=== PATIENT | female | born 1935 | race Caucasian/White ===

== ENCOUNTER 2016-09-19 23:58 | Emergency (ER) | payer MEDICARE, OTHER ==
[2016-09-20 00:04] VITALS: BP 130/79
[2016-09-20] MEDS ORDERED: TETANUS/DIPHTHERIA/PERTUSSIS 0.5 ML SYRINGE IM ONE ×2 (00:07→00:08)
--- NOTE | 2016-09-20 00:09 | ED Physician Documentation ---
History of Present Illness - Stated complaint Stated Complaint: LT FINGER LACERATION - Chief complaint Chief Complaint: Laceration - History obtained from History obtained from: Patient, Family - History of Present Illness Timing: How many hours ago (4) Pain level max: 0 Pain level now: 0 Improved by: pressure Worsened by: movement - Additonal information Additional information: cut L index finger tip while cutting vegetables at home, continued to bleed tonight. 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 HEENT: Cataracts - Present Medications Home Medications: Ambulatory Orders Medication Instructions Recorded Confirmed Amlodipine/Atorvastatin 1 each PO DAILY 04/29/15 08/27/15 [Amlodipine-Atorvast 5-10 mg] Aspirin [Aspirin EC] 81 mg PO DAILY 04/29/15 08/27/15 Calcium Carbonate [Calcium] 600 mg PO DAILY 04/29/15 08/27/15 Garlic 1 each PO DAILY 04/29/15 08/27/15 Gluc Mcqueen/Chondro Mcqueen A/Vit C/Mn 1 each PO DAILY 04/29/15 08/27/15 [Glucosamine 1,500 Complex Cp] Latanoprost 0.005% Ophth Drops 1 drops OPTH QPM 04/29/15 08/27/15 [Xalatan Ophth Drops] Levothyroxine Sodium 100 mcg PO DAILY 04/29/15 08/27/15 Lisinopril 10 mg PO DAILY 04/29/15 08/27/15 [place]-3 Fatty Acids [Fish Oil] 900 mg PO DAILY 04/29/15 08/27/15 Omeprazole [PriLOSEC] 20 mg PO DAILY 04/29/15 08/27/15 Potassium Chloride [K-Dur] 20 meq PO ONCE 04/29/15 08/27/15 Simvastatin 10 mg PO DAILY 04/29/15 08/27/15 Timolol 0.25% Ophth Drops 1 drops EACHEYE DAILY 04/29/15 08/27/15 [Timoptic 0.25% Ophth Drops] Vit C/Ascorbate Ca/Ascorb Sod 500 mg PO BID 04/29/15 08/27/15 [Vitamin C 500 mg/15 ml Liquid] Citalopram Hydrobromide 20 mg PO DAILY 08/27/15 08/27/15 [Citalopram HBr] Vit B Cmplx 3/FA/Vit C/Biotin 1 tab PO DAILY 08/27/15 08/27/15 [Nephro-Aleida Rx Tablet] - Allergies Allergies/Adverse Reactions: Allergies Allergy/AdvReac Type Severity Reaction Status Date / Time No Known Drug Allergies Allergy Verified 06/11/15 06:50 - Living Situation Living Situation: reports: With family Living Arrangement: reports: At home - Social History Does the pt have substance abuse?: No - Family History Family history: reports: Non contributory - Immunizations Immunizations are current?: No Immunizations: TDAP >10years/unknown PD ED PE NORMAL - Vitals Vital signs reviewed: Yes - General General: Alert and oriented X 3, No acute distress - Derm Derm: Warm and dry - Extremities Extremities: Other (L index finger, tip., 0.5cm superficial. no bleeding.) - Neuro Neuro: Alert and oriented X 3 - Psych Psych: Normal mood, Normal affect Results - Vitals Vitals: Vital Signs - 24 hr 09/20/16 00:01 Temperature 36.5 C Heart Rate 74 Respiratory 18 Rate Blood Pressure 130/79 O2 Saturation 96 Oxygen O2 Source Room air PD MEDICAL DECISION MAKING - ED course Complexity details: considered differential, d/w patient, d/w family ED course: Patient is an 80-year-old female with a laceration to left index finger. Repair with Dermabond. No active bleeding. Warnings of infection and instructions on wound care given at bedside. Also counseled on how to minimize scarring. Tdap given Patient and family counseled regarding signs and symptoms for which I believe and urgent re-evaluation would be necessary. Patient with good understanding of and agreement to plan and is comfortable going home at this time This document was made in part using voice recognition software. While efforts are made to proofread this document, sound alike and grammatical errors may occur. Departure - Departure Disposition: 01 Home, Self Care Clinical Impression: Finger laceration Qualifiers: Encounter type: initial encounter Qualified Code(s): S61.219A - Laceration without foreign body of unspecified finger without damage to nail, initial encounter Condition: Good Instructions: ED Laceration Hand Follow-Up: Aristides Pittman MD [Primary Care Provider] - Within 1 week (for wound check ) Comments: Return if you worsen. Do not apply ointment to the glue as this may dissolve the glue. Discharge Date/Time: 09/20/16 00:18
== END 2016-09-20 00:18 | disposition home or self-care (01) ==
LOC: ED 23:58
DX: S61.211A Laceration without foreign body of left index finger without damage to nail, initial encounter (principal); W45.8XXA Other foreign body or object entering through skin, initial encounter; Y93.G3 Activity, cooking and baking; Y92.009 Unspecified place in unspecified non-institutional (private) residence as the place of occurrence of the external cause; I10 Essential (primary) hypertension; F03.90 Unspecified dementia, unspecified severity, without behavioral disturbance, psychotic disturbance, mood disturbance, and anxiety; Z79.82 Long term (current) use of aspirin
CPT/HCPCS: 12001; 90471; 99283

== ENCOUNTER 2016-11-04 15:17 | Emergency (ER) | payer MEDICARE, OTHER ==
[2016-11-04] MEDS ORDERED: BACITRACIN OINT TOP STA (15:58)
--- NOTE | 2016-11-04 17:08 | XRAY Preliminary Report ---
Exam: XR Ribs w/PA Chest RT IMPRESSION: No fractures identified. [facility] SITE ID: [id number]
--- NOTE | 2016-11-04 17:10 | XRAY Report ---
EXAM: RIGHT RIB RADIOGRAPHY EXAM DATE: 11/04/2016 04:41 PM. CLINICAL HISTORY: Fall 2 days ago with right lower chest wall pain. COMPARISON: 09/17/2008. TECHNIQUE: 1 view of the chest and 3 views of the ribs. FINDINGS: Bones: Normal. No fracture or bone lesion. Lungs: No focal opacities. No pneumothorax. No pleural effusions. Mediastinum: Heart and mediastinal contours are unremarkable. Other: None. IMPRESSION: No fractures identified. [facility] Referring Provider Line: [phone] SITE ID: [id number]
--- NOTE | 2016-11-04 17:11 | ED Physician Documentation ---
PD HPI Fall - Stated complaint Stated Complaint: GLF - Chief complaint Chief Complaint: General - History obtained from History obtained from: Patient, Family (spouse) - History of Present Illness Mechanism of injury: Tripped Fall distance: Standing position Where injury occurred: Home Timing - onset: Yesterday Injury(ies) location: Chest, Right Upper Extremity, Right Lower Extremity Associated symptoms: No: LOC, Neck pain, Weakness, Dyspnea, Nausea / vomiting Similar symptoms before: Has not had sx before - Additional information Additional information: The patient is an 81-year-old female who fell yesterday when she stumbled, falling onto concrete, impacting her right elbow and right hip/buttock. She denies hitting her head or losing consciousness. She has been ambulatory since the incident occurred. Her last tetanus booster was 10 years ago. She is status post bilateral total hip replacements. Review of Systems Constitutional: denies: Fever Ears: denies: Tinnitus/ringing Nose: denies: Congestion Cardiac: reports: Chest pain / pressure (Right lower chest wall.) Respiratory: denies: Dyspnea, Cough GI: denies: Abdominal Pain, Nausea, Vomiting : denies: Dysuria Skin: reports: Laceration (s) (Skin tear at the right elbow.) Musculoskeletal: reports: Extremity pain (right posterior sacral/buttock region) . 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 HEENT: Cataracts - Present Medications Home Medications: Ambulatory Orders Medication Instructions Recorded Confirmed Amlodipine/Atorvastatin 1 each PO DAILY 04/29/15 11/04/16 [Amlodipine-Atorvast 5-10 mg] Aspirin [Aspirin EC] 325 mg PO DAILY 04/29/15 11/04/16 Calcium Carbonate [Calcium] 600 mg PO DAILY 04/29/15 11/04/16 Garlic 1 each PO DAILY 04/29/15 11/04/16 Gluc Mcqueen/Chondro Mcqueen A/Vit C/Mn 1 each PO DAILY 04/29/15 11/04/16 [Glucosamine 1,500 Complex Cp] Latanoprost 0.005% Ophth Drops 1 drops OPTH QPM 04/29/15 11/04/16 [Xalatan Ophth Drops] Levothyroxine Sodium 100 mcg PO DAILY 04/29/15 11/04/16 Lisinopril 10 mg PO DAILY 04/29/15 11/04/16 [place]-3 Fatty Acids [Fish Oil] 900 mg PO DAILY 04/29/15 11/04/16 Omeprazole [PriLOSEC] 20 mg PO DAILY 04/29/15 11/04/16 Potassium Chloride [K-Dur] 20 meq PO ONCE 04/29/15 11/04/16 Simvastatin 10 mg PO DAILY 04/29/15 11/04/16 Timolol 0.25% Ophth Drops 1 drops EACHEYE DAILY 04/29/15 11/04/16 [Timoptic 0.25% Ophth Drops] Vit C/Ascorbate Ca/Ascorb Sod 500 mg PO BID 04/29/15 11/04/16 [Vitamin C 500 mg/15 ml Liquid] Citalopram Hydrobromide 20 mg PO DAILY 08/27/15 11/04/16 [Citalopram HBr] Vit B Cmplx 3/FA/Vit C/Biotin 1 tab PO DAILY 08/27/15 11/04/16 [Nephro-Aleida Rx Tablet] HYDROcod/ACETAM 5/325 [Vicodin 1 - 2 ea PO Q6H PRN #15 tablet 11/04/16 5/325] - Allergies Allergies/Adverse Reactions: Allergies Allergy/AdvReac Type Severity Reaction Status Date / Time No Known Drug Allergies Allergy Verified 06/11/15 06:50 - Social History Does the pt smoke?: No Smoking Status: Never smoker Does the pt have substance abuse?: No - Immunizations Immunizations are current?: No Immunizations: TDAP >10years/unknown PD ED PE NORMAL - Vitals Vital signs reviewed: Yes (normal) - General General: Alert and oriented X 3, Well developed/nourished - HEENT HEENT: Atraumatic - Neck Neck: No bony TTP, Other (Full range of motion without tenderness.) - Cardiac Cardiac: RRR - Respiratory Respiratory: No respiratory distress, Clear bilaterally, Other (There is tenderness to palpation over the right lower chest wall in the anterior axillary line. There is no bony step-off palpated, and no ecchymosis or abrasion.) - Abdomen Abdomen: Soft, Non tender - Back Back: No spinal TTP - Derm Derm: No rash - Extremities Extremities: No edema, No calf tenderness / cord, Other (There is a superficial skin tear over the lateral aspect of the right proximal forearm at the elbow. She has full range of motion of the elbow, including supination and pronation of the forearm. There is mild tenderness to palpation over the right buttock in the superior iliac region. There is no ecchymosis. There is no tenderness to palpation over the hip, including no discomfort with internal or external rotation.) - Neuro Neuro: Alert and oriented X 3, No motor deficit, No sensory deficit Results - Vitals Vitals: Vital Signs - 24 hr 11/04/16 11/04/16 15:22 17:38 Temperature 35.9 C L Heart Rate 67 66 Respiratory 16 16 Rate Blood Pressure 132/72 H 152/81 H O2 Saturation 98 99 Oxygen O2 Source Room air - Rads (name of study) Right ribs with PA chest Radiology: Prelim report reviewed, EMP read contemporaneously, See rad report ( No rib fractures identified.) PD MEDICAL DECISION MAKING - ED course Complexity details: reviewed results, re-evaluated patient, considered differential, d/w patient, d/w family ED course: The patient's presentation is significant for contusions caused by falling. Contusions included to the right chest wall, the right buttock, the right elbow , with associated skin tear. X-ray of the right ribs with PA chest reveals no evidence of rib fracture or pneumothorax. Treatment in the emergency department included cleaning of the skin tear, repair with Steri-Strips and application of wound dressing. I discussed with her and her the expected course of healing, symptomatic treatment and outpatient follow-up, as well as potentially worrisome signs or symptoms that should prompt reevaluation in the emergency department. Departure - Departure Disposition: 01 Home, Self Care Clinical Impression: Fall Qualifiers: Encounter type: initial encounter Qualified Code(s): W19.XXXA - Unspecified fall, initial encounter Chest wall contusion Qualifiers: Encounter type: initial encounter Laterality: right Qualified Code(s): S20.211A - Contusion of right front wall of thorax, initial encounter Skin tear of elbow without complication Qualifiers: Encounter type: initial encounter Laterality: right Qualified Code(s): S51.011A - Laceration without foreign body of right elbow, initial encounter Contusion of hip, right Qualifiers: Encounter type: initial encounter Qualified Code(s): S70.01XA - Contusion of right hip, initial encounter Condition: Stable Instructions: ED Contusion Chest Wall, ED Avulsion Dermal Follow-Up: Antonina Odell PA-C [Provider Admit Priv/Credential] - Prescriptions: HYDROcod/ACETAM 5/325 [Vicodin 5/325] 1 - 2 ea PO Q6H PRN #15 tablet PRN Reason: Pain Comments: Apply icepack to the sore areas intermittently for the next 3 days. You can use ibuprofen, up to 600 mg 3 times daily if needed for discomfort. You can also use Vicodin as prescribed if needed for pain. Let pain be your guide to activity level. Follow up with your primary physician within 2 weeks. Call to schedule an appointment. Return to the emergency department if you develop increasing difficulty breathing, or otherwise worsening symptoms. Discharge Date/Time: 11/04/16 17:38
[2016-11-04 17:38] VITALS: BP 152/81
== END 2016-11-04 17:38 | disposition home or self-care (01) ==
LOC: ED 15:17
DX: S20.211A Contusion of right front wall of thorax, initial encounter (principal); S51.001A Unspecified open wound of right elbow, initial encounter; S70.01XA Contusion of right hip, initial encounter; W01.0XXA Fall on same level from slipping, tripping and stumbling without subsequent striking against object, initial encounter; Y92.008 Other place in unspecified non-institutional (private) residence as the place of occurrence of the external cause; I10 Essential (primary) hypertension; F03.90 Unspecified dementia, unspecified severity, without behavioral disturbance, psychotic disturbance, mood disturbance, and anxiety; Z96.649 Presence of unspecified artificial hip joint; Z79.82 Long term (current) use of aspirin
CPT/HCPCS: 99283

== ENCOUNTER 2016-12-08 11:07 | Outpatient (CLI) | payer MEDICARE, OTHER ==
[2016-12-08 18:59] LABS: BASOPHILS # (AUTO) 0.1 10^3/uL (0.0-0.1); EOSINOPHILS # (AUTO) 0.4 10^3/uL (0.0-0.7); EOSINOPHILS % (AUTO) 6.6 %; HCT - HEMATOCRIT 39.6 % (37.0-47.0); HGB - HEMOGLOBIN 12.9 g/dL (12.0-16.0); LYMPHOCYTES # (AUTO) 1.4 10^3/uL (1.5-3.5); LYMPHOCYTES % (AUTO) 23.8 %; MEAN CORPUSCULAR HEMOGLOBIN 31.6 pg (27.0-31.0); MEAN CORPUSCULAR HGB CONC 32.7 g/dL (32.0-36.0); MEAN CORPUSCULAR VOLUME 96.8 fL (81.0-99.0); MONOCYTES # (AUTO) 0.6 10^3/uL (0.0-1.0); MONOCYTES % (AUTO) 9.3 %; NEUTROPHILS # (AUTO) 3.6 10^3/uL (1.5-6.6); NEUTROPHILS % (AUTO) 59.3 %; NUCLEATED RED BLOOD CELLS AUTO 0.1 /100WBC; RED BLOOD COUNT 4.09 10^6/uL (4.20-5.40); RED CELL DISTRIBUTION WIDTH 13.5 % (12.0-15.0)
[2016-12-08 19:25] LABS: ALBUMIN/GLOBULIN RATIO 1.3 (1.0-2.2); BILIRUBIN,TOTAL 0.7 mg/dL (0.2-1.0); BUN - BLOOD UREA NITROGEN 21 mg/dL (6-20); CALCIUM 9.5 mg/dL (8.5-10.3); CARBON DIOXIDE - CO2 25 mmol/L (21-32); CHLORIDE 103 mmol/L (101-111); CHOL/HDL RATIO 2.8 (<4.4); CHOLESTEROL 195 mg/dL; CREATININE 0.7 mg/dL (0.4-1.0); GFR - MDRD 80 (>89); GLUCOSE 77 mg/dL (70-100); HDL CHOLESTEROL 70 mg/dL; LDL/HDL RATIO 1.3 (<4.4); POTASSIUM 4.4 mmol/L (3.5-5.0); SODIUM 136 mmol/L (135-145); TOTAL PROTEIN 7.2 g/dL (6.7-8.2); TRIGLYCERIDES 176 mg/dL; VLDL CHOLESTEROL 35 mg/dL
== END 2016-12-08 11:08 | disposition home or self-care (01) ==
LOC: LAB.WCP 11:07
PROVIDERS: ATTEND Family Medicine
DX: I10 Essential (primary) hypertension (principal); E78.5 Hyperlipidemia, unspecified; E03.9 Hypothyroidism, unspecified
CPT/HCPCS: 36415; 80053; 80061; 84443; 85025

== ENCOUNTER 2017-01-18 14:10 | Outpatient (CLI) | payer MEDICARE, OTHER | END 2017-01-18 14:11 | disposition home or self-care (01) | LOC: SC 14:10 | PROVIDERS: ATTEND Specialist | DX: G47.30 Sleep apnea, unspecified (principal); R53.83 Other fatigue; R06.83 Snoring; G47.00 Insomnia, unspecified; R61 Generalized hyperhidrosis | CPT/HCPCS: 99205; G0463; 99212 ==

== ENCOUNTER 2017-06-03 15:11 | Emergency (ER) | payer MEDICARE, OTHER ==
[2017-06-03] MEDS ORDERED: ACETAMINOPHEN 325 MG TABLET PO STA (17:00)
--- NOTE | 2017-06-03 17:04 | ED Physician Documentation ---
History of Present Illness - Stated complaint Stated Complaint: WEAKNESS - Chief complaint Chief Complaint: General - History obtained from History obtained from: Patient, Family () - History of Present Illness Timing: Other (She has had mild bitemporal throbbing for the last 3 weeks which is worse today not associated with visual changes or photophobia. She has never had this before and does not really have any headaches in the past. Today it is associated with abdominal discomfort but no nausea or significant pain. Her bowel movements have been normal. No fevers or chills.) Review of Systems Ten Systems: 10 systems reviewed and negative Constitutional: reports: Fatigue. 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 HEENT: Cataracts - Present Medications Home Medications: Ambulatory Orders Medication Instructions Recorded Confirmed Amlodipine/Atorvastatin 1 each PO DAILY 04/29/15 11/04/16 [Amlodipine-Atorvast 5-10 mg] Aspirin [Aspirin EC] 325 mg PO DAILY 04/29/15 11/04/16 Calcium Carbonate [Calcium] 600 mg PO DAILY 04/29/15 11/04/16 Garlic 1 each PO DAILY 04/29/15 11/04/16 Gluc Mcqueen/Chondro Mcqueen A/Vit C/Mn 1 each PO DAILY 04/29/15 11/04/16 [Glucosamine 1,500 Complex Cp] Latanoprost 0.005% Ophth Drops 1 drops OPTH QPM 04/29/15 11/04/16 [Xalatan Ophth Drops] Levothyroxine Sodium 100 mcg PO DAILY 04/29/15 11/04/16 Lisinopril 10 mg PO DAILY 04/29/15 11/04/16 [place]-3 Fatty Acids [Fish Oil] 900 mg PO DAILY 04/29/15 11/04/16 Omeprazole [PriLOSEC] 20 mg PO DAILY 04/29/15 11/04/16 Potassium Chloride [K-Dur] 20 meq PO ONCE 04/29/15 11/04/16 Simvastatin 10 mg PO DAILY 04/29/15 11/04/16 Timolol 0.25% Ophth Drops 1 drops EACHEYE DAILY 04/29/15 11/04/16 [Timoptic 0.25% Ophth Drops] Vit C/Ascorbate Ca/Ascorb Sod 500 mg PO BID 04/29/15 11/04/16 [Vitamin C 500 mg/15 ml Liquid] Citalopram Hydrobromide 20 mg PO DAILY 08/27/15 11/04/16 [Citalopram HBr] Vit B Comp No.3/Folic/C/Biotin 1 tab PO DAILY 08/27/15 11/04/16 [Nephro-Aleida Rx Tablet] Amox/Clav 875/125 [Augmentin] 1 each PO Q12H #20 tablet 06/03/17 - Allergies Allergies/Adverse Reactions: Allergies Allergy/AdvReac Type Severity Reaction Status Date / Time No Known Drug Allergies Allergy Verified 06/11/15 06:50 - Social History Does the pt smoke?: No Smoking Status: Never smoker Does the pt have substance abuse?: No - Immunizations Immunizations are current?: No Immunizations: TDAP >10years/unknown PD ED PE NORMAL - Vitals Vital signs reviewed: Yes - General General: Alert and oriented X 3, No acute distress - HEENT HEENT: PERRL, EOMI, Other (Nontender temples) - Neck Neck: Supple, no meningeal sign, No bony TTP - Cardiac Cardiac: RRR, Other (2/6 MARIANGEL LLSB) - Respiratory Respiratory: No respiratory distress, Clear bilaterally - Abdomen Abdomen: Soft, Non tender, Other (hyperactive bowel tones) - Back Back: No CVA TTP, No spinal TTP - Derm Derm: Normal color, Warm and dry - Extremities Extremities: No edema, No calf tenderness / cord - Neuro Neuro: Alert and oriented X 3, Normal speech Results - Vitals Vitals: Vital Signs - 24 hr 06/03/17 06/03/17 15:24 19:19 Temperature 36.5 C Heart Rate 64 67 Respiratory 15 17 Rate Blood Pressure 133/69 H 164/80 H O2 Saturation 99 99 Oxygen O2 Source Room air - Labs Labs: Laboratory Tests 06/03/17 06/03/17 06/03/17 17:30 17:30 17:30 WBC 6.9 RBC 4.19 L Hgb 13.2 Hct 38.6 MCV 92.2 MCH 31.4 H MCHC 34.1 RDW 13.3 Plt Count 338 MPV 7.5 L Neut # 4.8 Lymph # 1.2 L Cedar # 0.6 Eos # 0.2 Baso # 0.1 Absolute Nucleated RBC 0.00 Nucleated RBC % 0.0 ESR 16 Sodium 136 Potassium 4.1 Chloride 99 L Carbon Dioxide 24 Anion Gap 13.0 BUN 17 Creatinine 0.8 Estimated GFR (MDRD) 69 L Glucose 81 Calcium 9.4 Total Bilirubin 0.5 AST 20 ALT 13 Alkaline Phosphatase 79 C-Reactive Protein 2.6 H Total Protein 7.1 Albumin 4.1 Globulin 3.0 Albumin/Globulin Ratio 1.4 Lipase 27 - Rads (name of study) CT Head Radiology: EMP read contemporaneously (Maxilar sinusitis) CT A?P Radiology: EMP read contemporaneously (neg) PD MEDICAL DECISION MAKING - ED course ED course: 81-year-old woman presents with vague complaints including headache and abdominal uneasiness without overt pain. She has a benign examination. Temporal arteritis was considered but sed rate negative. She does have evidence of sinusitis. The remainder of her workup was negative. Departure - Departure Disposition: 01 Home, Self Care Clinical Impression: Abdominal discomfort Sinusitis Qualifiers: Sinusitis location: maxillary Chronicity: acute Recurrence: non-recurrent Qualified Code(s): J01.00 - Acute maxillary sinusitis, unspecified Condition: Good Record reviewed to determine appropriate education?: Yes Instructions: ED Sinusitis Abx Tx Prescriptions: Amox/Clav 875/125 [Augmentin] 1 each PO Q12H #20 tablet Comments: Call your doctor to arrange a follow-up appointment, make the next available appointment. In the interim, return anytime if worse or if new symptoms develop. Your blood pressure was elevated today on check into the emergency department. This does not mean that you have hypertension, it is a common phenomenon to come to the emergency department and have elevated blood pressure. I recommend that you see your primary care physician within the week to have it rechecked when you are feeling better.
[2017-06-03 17:47] LABS: BASOPHILS # (AUTO) 0.1 10^3/uL (0.0-0.1); BASOPHILS % (AUTO) 1.2 %; EOSINOPHILS # (AUTO) 0.2 10^3/uL (0.0-0.7); EOSINOPHILS % (AUTO) 3.4 %; HGB - HEMOGLOBIN 13.2 g/dL (12.0-16.0); LYMPHOCYTES # (AUTO) 1.2 10^3/uL (1.5-3.5); LYMPHOCYTES % (AUTO) 16.7 %; MEAN CORPUSCULAR HEMOGLOBIN 31.4 pg (27.0-31.0); MEAN CORPUSCULAR HGB CONC 34.1 g/dL (32.0-36.0); MEAN CORPUSCULAR VOLUME 92.2 fL (81.0-99.0); MEAN PLATELET VOLUME 7.5 fL (7.9-10.8); MONOCYTES # (AUTO) 0.6 10^3/uL (0.0-1.0); MONOCYTES % (AUTO) 8.9 %; NEUTROPHILS # (AUTO) 4.8 10^3/uL (1.5-6.6); NEUTROPHILS % (AUTO) 69.8 %; PLT - PLATELET COUNT 338 10^3/uL (130-450); RED BLOOD COUNT 4.19 10^6/uL (4.20-5.40); RED CELL DISTRIBUTION WIDTH 13.3 % (12.0-15.0); WHITE BLOOD COUNT 6.9 x10^3/uL (4.8-10.8)
[2017-06-03 18:02] LABS: ALBUMIN 4.1 g/dL (3.2-5.5); ALBUMIN/GLOBULIN RATIO 1.4 (1.0-2.2); BILIRUBIN,TOTAL 0.5 mg/dL (0.2-1.0); CALCIUM 9.4 mg/dL (8.5-10.3); CREATININE 0.8 mg/dL (0.4-1.0); CRP - C-REACTIVE PROTEIN 2.6 mg/dL (0-1.0); TOTAL PROTEIN 7.1 g/dL (6.7-8.2)
[2017-06-03] MEDS ORDERED: IOPAMIDOL-300 100 ML VIAL ONE (18:36)
[2017-06-03] MEDS ORDERED: IOPAMIDOL-300 100 ML VIAL IVP ONE (18:58)
[2017-06-03 19:20] VITALS: BP 164/80
--- NOTE | 2017-06-03 19:29 | CT Preliminary Report ---
Exam: CT HEAD W/O IMPRESSION: 1. No acute intracranial abnormality nor bleed. 2. Moderate to marked left maxillary sinusitis. [facility] SITE ID: [id number]
--- NOTE | 2017-06-03 19:38 | CT Preliminary Report ---
Exam: CT ABDOMEN/PELVIS W/ IMPRESSION: 1. Normal appendix. 2. Study is unremarkable. No radiographic explanation for this lady's presenting symptoms [facility] SITE ID: [id number]
--- NOTE | 2017-06-03 19:38 | CT Report ---
EXAM: CT HEAD EXAM DATE: 06/03/2017 06:57 PM. CLINICAL HISTORY: Headache. COMPARISON: 12/04/2012.. TECHNIQUE: Multiaxial CT images were obtained from the foramen magnum to the vertex. Reformats: Coron al. IV contrast: None. In accordance with CT protocol optimization, one or more of the following dose reduction techniques w ere utilized for this exam: automated exposure control, adjustment of mA and/or KV based on patient s ize, or use of iterative reconstructive technique. FINDINGS: Parenchyma: No intraparenchymal hemorrhage. No evidence of mass, midline shift, or CT findings of acu te infarction. Garcia-white differentiation is distinct. Diffuse chronic microangiopathic white matter changes are evident. Extraaxial Spaces: Normal for age. No subdural or epidural collections identified. Ventricles: The ventricles and cortical sulci are enlarged, consistent with age-related tissue loss. Sinuses and orbits: New moderate to marked mucosal thickening left maxillary sinus. Minimal mucosal t hickening floor of right maxillary sinus. The rest of the paranasal sinuses, middle ears, and mastoid air cells are clear. Bones: No evidence of fracture or calvarial defect. Other: None. IMPRESSION: 1. No acute intracranial abnormality nor bleed. 2. Moderate to marked left maxillary sinusitis. [facility] Referring Provider Line: [phone] SITE ID: [id number]
[2017-06-03] MEDS ORDERED: AMOX/CLAV 875 MG/125 MG TABLET PO STA (19:49)
--- NOTE | 2017-06-03 20:07 | CT Report ---
EXAM: CT ABDOMEN AND PELVIS EXAM DATE: 06/03/2017 06:59 PM. CLINICAL HISTORY: Diffuse abdominal pain for one day. COMPARISONS: 06/23/2012. TECHNIQUE: Routine helical CT imaging was performed through the abdomen and pelvis. IV contrast: Isov ue 300 100 mL. Enteric contrast: No. Reconstructions: Coronal and sagittal. In accordance with CT protocol optimization, one or more of the following dose reduction techniques w ere utilized for this exam: automated exposure control, adjustment of mA and/or KV based on patient s ize, or use of iterative reconstructive technique. FINDINGS: Lung Bases: Unremarkable. Liver: Multiple 3 cm and smaller hepatic cysts. Gallbladder/Bile Ducts: Unremarkable. Spleen: Normal. Pancreas: New mild uniform pancreatic duct dilatation, 4 mm, unremarkable for age. No peripancreatic edema. Adrenal Glands: Normal. Kidneys: Normal. No masses or hydronephrosis. Peritoneal Cavity/Bowel: Normal. No free fluid, free air or adenopathy. No masses or acute inflammato ry process. The appendix is well visualized and normal. Pelvic Organs: Remote hysterectomy. Artifacts off the bilateral total hip replacements obscure the in ferior third of the pelvis. Pelvis is otherwise unremarkable. Vasculature: No aneurysms or other significant abnormality. Bones: Interval bilateral total hip replacement. Postoperative changes lower lumbar spine. Marked deg enerative changes throughout the scoliotic spine. Other: None. IMPRESSION: 1. Normal appendix. 2. Study is unremarkable. No radiographic explanation for this lady's presenting symptoms. [facility] Referring Provider Line: [phone] SITE ID: [id number]
== END 2017-06-03 20:00 | disposition home or self-care (01) ==
LOC: ED 15:11
DX: R10.9 Unspecified abdominal pain (principal); J01.00 Acute maxillary sinusitis, unspecified; I10 Essential (primary) hypertension; Z96.649 Presence of unspecified artificial hip joint
CPT/HCPCS: 36415; 70450; 74177; 80053; 83690; 85025; 85651; 86140; 99283; 99284; A9270; Q9967

== ENCOUNTER 2017-06-17 12:52 | Outpatient (CLI) | payer MEDICARE, OTHER | END 2017-06-17 12:53 | disposition home or self-care (01) | LOC: DI 12:52 | PROVIDERS: ATTEND Family Medicine | DX: R01.1 Cardiac murmur, unspecified (principal); I51.7 Cardiomegaly | CPT/HCPCS: 93306 ==

== ENCOUNTER 2017-07-07 15:25 | Outpatient (CLI) | payer MEDICARE, OTHER | END 2017-07-07 15:26 | LOC: LAB.R 15:25 | PROVIDERS: ATTEND Family Medicine | DX: N39.0 Urinary tract infection, site not specified (principal) | CPT/HCPCS: 87077; 87086 ==

== ENCOUNTER 2017-10-14 17:46 | Emergency (ER) | payer MEDICARE, OTHER ==
--- NOTE | 2017-10-14 17:58 | ED Physician Documentation ---
PD HPI CHEST PAIN - Stated complaint Stated Complaint: IRREG HEARTBEAT - History obtained from History obtained from: Patient, Family - History of Present Illness Timing - onset: Today (Today she has been having more palpitations than normal, she always has palpitations to some extent. Today it is more common than normal. She feels like she is skipping a beat every 5-10 beats or so. It is not a painful phenomenon and there is no shortness of breath or pedal edema with it.) Review of Systems Constitutional: denies: Fever, Chills Cardiac: reports: Palpitations. 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 HEENT: Cataracts - Present Medications Home Medications: Ambulatory Orders Medication Instructions Recorded Confirmed Amlodipine/Atorvastatin 1 each PO DAILY 04/29/15 11/04/16 [Amlodipine-Atorvast 5-10 mg] Aspirin [Aspirin EC] 325 mg PO DAILY 04/29/15 11/04/16 Calcium Carbonate [Calcium] 600 mg PO DAILY 04/29/15 11/04/16 Garlic 1 each PO DAILY 04/29/15 11/04/16 Latanoprost 0.005% Ophth Drops 1 drops OPTH QPM 04/29/15 11/04/16 [Xalatan Ophth Drops] Levothyroxine Sodium 100 mcg PO DAILY 04/29/15 11/04/16 Lisinopril 10 mg PO DAILY 04/29/15 11/04/16 [place]-3 Fatty Acids [Fish Oil] 900 mg PO DAILY 04/29/15 11/04/16 Omeprazole [PriLOSEC] 20 mg PO DAILY 04/29/15 11/04/16 Potassium Chloride [K-Dur] 20 meq PO ONCE 04/29/15 11/04/16 Simvastatin 10 mg PO DAILY 04/29/15 11/04/16 Timolol 0.25% Ophth Drops 1 drops EACHEYE DAILY 04/29/15 11/04/16 [Timoptic 0.25% Ophth Drops] Vit C/Ascorbate Ca/Ascorb Sod 500 mg PO BID 04/29/15 11/04/16 [Vitamin C 500 mg/15 ml Liquid] Citalopram Hydrobromide 20 mg PO DAILY 08/27/15 11/04/16 [Citalopram HBr] Zolpidem [Ambien] 1 tab PO DAILY 10/14/17 10/14/17 - Allergies Allergies/Adverse Reactions: Allergies Allergy/AdvReac Type Severity Reaction Status Date / Time No Known Drug Allergies Allergy Verified 10/14/17 17:59 - Social History Does the pt smoke?: No Smoking Status: Never smoker Does the pt have substance abuse?: No - Immunizations Immunizations are current?: No Immunizations: TDAP >10years/unknown PD ED PE NORMAL - Vitals Vital signs reviewed: Yes - General General: Alert and oriented X 3, No acute distress - HEENT HEENT: PERRL, EOMI - Neck Neck: Supple, no meningeal sign, No bony TTP - Cardiac Cardiac: RRR (With occasional extrasystoles and 2 out of 6 decrescendo systolic murmur) - Respiratory Respiratory: No respiratory distress, Clear bilaterally - Extremities Extremities: No edema, No calf tenderness / cord - Neuro Neuro: Alert and oriented X 3, Normal speech - Psych Psych: Normal mood, Normal affect Results - Vitals Vitals: Vital Signs - 24 hr 10/14/17 17:55 Temperature 36.5 C Heart Rate 64 Respiratory 16 Rate Blood Pressure 136/74 H O2 Saturation 100 Oxygen O2 Source Room air - EKG (time done) 1754 Rate: Rate (enter#) (60) Rhythm: NSR [place]: LAD Intervals: Normal ME QRS: Normal Ischemia: Q waves (Anterior septal) Compare to prior EKG: Old EKG unavailable Computer interpretation: Agree with computer - Labs Labs: Laboratory Tests 10/14/17 10/14/17 10/14/17 18:04 18:04 18:04 WBC 5.6 RBC 4.19 L Hgb 13.3 Hct 39.9 MCV 95.2 MCH 31.7 H MCHC 33.3 RDW 13.2 Plt Count 346 MPV 6.9 L Neut # (Auto) 3.6 Lymph # (Auto) 1.2 L [place] # (Auto) 0.6 Eos # (Auto) 0.2 Baso # (Auto) 0.1 Absolute Nucleated RBC 0.00 Nucleated RBC % 0.0 Sodium 135 Potassium 4.3 Chloride 103 Carbon Dioxide 25 Anion Gap 7.0 BUN 20 Creatinine 0.9 Estimated GFR (MDRD) 60 L Glucose 88 Calcium 9.5 Magnesium 2.0 Total Bilirubin 0.7 AST 20 ALT 14 Alkaline Phosphatase 65 Troponin I < 0.04 Total Protein 7.2 Albumin 4.1 Globulin 3.1 Albumin/Globulin Ratio 1.3 Lipase 38 PD MEDICAL DECISION MAKING - ED course ED course: On the gambling monitor she is having about 3 PACs per minute which correlates temporally with her symptoms. - Sepsis Event Vital Signs: Vital Signs - 24 hr 10/14/17 17:55 Temperature 36.5 C Heart Rate 64 Respiratory 16 Rate Blood Pressure 136/74 H O2 Saturation 100 Oxygen O2 Source Room air Departure - Departure Disposition: 01 Home, Self Care Clinical Impression: PAC (premature atrial contraction), Palpitation Hypertension Qualifiers: Hypertension type: essential hypertension Qualified Code(s): I10 - Essential ( primary) hypertension Condition: Good Record reviewed to determine appropriate education?: Yes Instructions: ED Palpitations Comments: Call your doctor to arrange a follow-up appointment, make the next available appointment. In the interim, return anytime if worse or if new symptoms develop.
[2017-10-14 18:10] LABS: BASOPHILS # (AUTO) 0.1 10^3/uL (0.0-0.1); BASOPHILS % (AUTO) 1.2 %; EOSINOPHILS # (AUTO) 0.2 10^3/uL (0.0-0.7); EOSINOPHILS % (AUTO) 3.2 %; HGB - HEMOGLOBIN 13.3 g/dL (12.0-16.0); LYMPHOCYTES # (AUTO) 1.2 10^3/uL (1.5-3.5); LYMPHOCYTES % (AUTO) 22.2 %; MEAN CORPUSCULAR HEMOGLOBIN 31.7 pg (27.0-31.0); MEAN CORPUSCULAR HGB CONC 33.3 g/dL (32.0-36.0); MEAN CORPUSCULAR VOLUME 95.2 fL (81.0-99.0); MEAN PLATELET VOLUME 6.9 fL (7.9-10.8); MONOCYTES # (AUTO) 0.6 10^3/uL (0.0-1.0); NEUTROPHILS # (AUTO) 3.6 10^3/uL (1.5-6.6); NEUTROPHILS % (AUTO) 63.4 %; PLT - PLATELET COUNT 346 10^3/uL (130-450); RED BLOOD COUNT 4.19 10^6/uL (4.20-5.40); RED CELL DISTRIBUTION WIDTH 13.2 % (12.0-15.0); WHITE BLOOD COUNT 5.6 x10^3/uL (4.8-10.8)
[2017-10-14 18:22] LABS: ALBUMIN 4.1 g/dL (3.2-5.5); ALBUMIN/GLOBULIN RATIO 1.3 (1.0-2.2); BILIRUBIN,TOTAL 0.7 mg/dL (0.2-1.0); CALCIUM 9.5 mg/dL (8.5-10.3); CREATININE 0.9 mg/dL (0.4-1.0); TOTAL PROTEIN 7.2 g/dL (6.7-8.2)
[2017-10-14 18:47] VITALS: BP 109/59
== END 2017-10-14 18:47 | disposition home or self-care (01) ==
LOC: ED 17:46
DX: I49.1 Atrial premature depolarization (principal); R00.2 Palpitations; I10 Essential (primary) hypertension; E78.00 Pure hypercholesterolemia, unspecified; R01.1 Cardiac murmur, unspecified; E05.90 Thyrotoxicosis, unspecified without thyrotoxic crisis or storm; Z79.82 Long term (current) use of aspirin
CPT/HCPCS: 36415; 80053; 83690; 83735; 84484; 85025; 93005; 99283; 99284

== ENCOUNTER 2017-11-10 11:09 | Outpatient (CLI) | payer MEDICARE, OTHER ==
--- NOTE | 2017-11-11 07:11 | MRI Report ---
Procedure Date: 11/10/2017 Accession Number: [id number] / [id number] Procedure: MRI - Brain W/O CPT Code: FULL RESULT: EXAM: MRI BRAIN WITHOUT CONTRAST EXAM DATE: 11/10/2017 12:06 PM. CLINICAL HISTORY: Chronic headaches. COMPARISON: 01/29/2014. TECHNIQUE: Multiplanar, multisequence T1-weighted and fluid-sensitive MR sequences of the brain were performed. Sequences optimized for routine evaluation. Other: None. IV Contrast: None. FINDINGS: Brain Volume: Moderate generalized cerebral volume loss, possibly mildly progressive. Notable volume loss of the medial temporal lobes including hippocampi in a pattern that can be associated with neurodegenerative dementia. Parenchyma/Dura: No restricted diffusion to suggest acute or recent ischemic infarct. No cerebral hemorrhage. No mass effect, midline shift or abnormal subdural fluid collection. No significant change in the pattern of mild to moderate multifocal chronic cerebral white matter disease, T2 hyperintense signal changes while nonspecific are consistent with aging and multifocal chronic small vessel ischemic disease. Ventricles/Cisterns: Similar overall pattern of ventriculomegaly. These findings are more likely secondary to central greater than peripheral atrophy but normal pressure hydrocephalus may also enter the differential, the degree of superior cerebral sulcal enlargement may be disproportionately small relative to the degree of enlargement of the ventricles and remaining subarachnoid spaces including the enlarged sylvian fissures. Orbits: Previous lens extractions. S[place]: No space-occupying mass, stable appearance. IAC: No evidence for space-occupying mass allowing for the inherent limitations of noncontrast posterior fossa imaging technique. Vasculature: The major arterial skull base flow voids are present. Sinuses: No acute appearing sinus or mastoid disease. Bones: No focal pathologic appearing marrow signal changes in the skull or clivus. Other: None. IMPRESSION: 1. No acute hemorrhage or stroke. 2. Moderate generalized cerebral volume loss, possibly mildly progressive. 3. Note also that there is disproportionate medial temporal lobe atrophy including hippocampi in a pattern that can be associated with neurodegenerative dementia. 4. Generalized ventricular prominence, likely from atrophy, normal pressure hydrocephalus is less likely. 5. 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 RADIA
== END 2017-11-10 11:10 | disposition home or self-care (01) ==
LOC: DI 11:09
PROVIDERS: ATTEND Family Medicine
DX: G31.9 Degenerative disease of nervous system, unspecified (principal); R90.82 White matter disease, unspecified
CPT/HCPCS: 70551

== ENCOUNTER 2018-01-08 15:43 | Emergency (ER) | payer MEDICARE, OTHER ==
[2018-01-08 15:59] VITALS: BP 109/62
[2018-01-08] MEDS ORDERED: MELOXICAM 7.5 MG TABLET PO STA (16:15)
--- NOTE | 2018-01-08 16:27 | ED Physician Documentation ---
PD HPI LOWER EXT INJURY - Stated complaint Stated Complaint: KNEE/LEG PX - Chief complaint Chief Complaint: Ext Problem - History obtained from History obtained from: Patient, Family () - History of Present Illness PD HPI LOW EXT INJURY LOCATION: Right, Knee Type of injury: Other (doesn't recall an injury) Timing - onset: How many days ago (several days) Timing - duration: Days (several) Timing - details: Gradual onset Pain level max: 5 Pain level now: 4 Improved by: Rest Worsened by: Moving, Palpating Associated symptoms: Swelling. No: Weakness, Numbness, Tingling Contributing factors: No: Anticoagulated, Prior ortho surgery Similar symptoms before: Has not had sx before Recently seen: Not recently seen Review of Systems Constitutional: denies: Fever Musculoskeletal: denies: Neck pain, Back pain Neurologic: denies: Headache PD PAST MEDICAL HISTORY - Past Medical History Past Medical History: Yes Cardiovascular: Hypertension, High cholesterol, Murmur Respiratory: None Neuro: Dementia Endocrine/Autoimmune: HyPERthyroidism GI: Chronic constipation, Other : None HEENT: None Psych: Anxiety Musculoskeletal: None Derm: None - Past Surgical History Past Surgical History: Yes Ortho: Hip replacement, Spine surgery, 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 HEENT: Cataracts - Present Medications Home Medications: Ambulatory Orders Medication Instructions Recorded Confirmed Amlodipine/Atorvastatin 1 each PO DAILY 04/29/15 11/04/16 [Amlodipine-Atorvast 5-10 mg] Aspirin [Aspirin EC] 325 mg PO DAILY 04/29/15 11/04/16 Calcium Carbonate [Calcium] 600 mg PO DAILY 04/29/15 11/04/16 Garlic 1 each PO DAILY 04/29/15 11/04/16 Latanoprost 0.005% Ophth Drops 1 drops OPTH QPM 04/29/15 11/04/16 [Xalatan Ophth Drops] Levothyroxine Sodium 100 mcg PO DAILY 04/29/15 11/04/16 Lisinopril 10 mg PO DAILY 04/29/15 11/04/16 [place]-3 Fatty Acids [Fish Oil] 900 mg PO DAILY 04/29/15 11/04/16 Omeprazole [PriLOSEC] 20 mg PO DAILY 04/29/15 11/04/16 Potassium Chloride [K-Dur] 20 meq PO ONCE 04/29/15 11/04/16 Simvastatin 10 mg PO DAILY 04/29/15 11/04/16 Timolol 0.25% Ophth Drops 1 drops EACHEYE DAILY 04/29/15 11/04/16 [Timoptic 0.25% Ophth Drops] Vit C/Ascorbate Ca/Ascorb Sod 500 mg PO BID 04/29/15 11/04/16 [Vitamin C 500 mg/15 ml Liquid] Citalopram Hydrobromide 20 mg PO DAILY 08/27/15 11/04/16 [Citalopram HBr] Zolpidem [Ambien] 1 tab PO DAILY 10/14/17 10/14/17 Diclofenac Sodium [Voltaren] 4 gm TP Q6H PRN #1 gel..gram. 01/08/18 - Allergies Allergies/Adverse Reactions: Allergies Allergy/AdvReac Type Severity Reaction Status Date / Time No Known Drug Allergies Allergy Verified 01/08/18 15:58 - Social History Does the pt smoke?: No Smoking Status: Never smoker Does the pt drink ETOH?: Yes Does the pt have substance abuse?: No - Immunizations Immunizations are current?: No Immunizations: TDAP >10years/unknown - POLST Patient has POLST: No PD ED PE NORMAL - Vitals Vital signs reviewed: Yes - General General: Alert and oriented X 3, No acute distress - Derm Derm: Warm and dry - Extremities Extremities: Other (R knee - mild swelling and TTP medial anterior aspect. MCL, ACL, PCL, LCL are intact. No overlying skin changes. Neurovascularly intact) - Neuro Neuro: Alert and oriented X 3 - Psych Psych: Normal mood, Normal affect Results - Vitals Vitals: Vital Signs - 24 hr 01/08/18 15:56 Temperature 36.0 C L Heart Rate 71 Respiratory 18 Rate Blood Pressure 109/62 O2 Saturation 97 Oxygen O2 Source Room air PD MEDICAL DECISION MAKING - ED course Complexity details: reviewed results, re-evaluated patient, considered differential, d/w patient, d/w family ED course: Patient is an 82-year-old female with right knee pain and mild medial compartment swelling. Appears to have osteoarthritis, worse in the medial compartment on the x-ray. Wrapped in an Andrzej bandage, will utilize a cane in the left hand and prescribe Voltaren gel. No evidence of DVT, bursitis or Kauffman's cyst. No evidence of ligamentous injury. Neurovascularly intact patient counseled regarding signs and symptoms for which I believe and urgent re- evaluation would be necessary. Patient with good understanding of and agreement to plan and is comfortable going home at this time This document was made in part using voice recognition software. While efforts are made to proofread this document, sound alike and grammatical errors may occur. - Sepsis Event Vital Signs: Vital Signs - 24 hr 01/08/18 15:56 Temperature 36.0 C L Heart Rate 71 Respiratory 18 Rate Blood Pressure 109/62 O2 Saturation 97 Oxygen O2 Source Room air Departure - Departure Disposition: 01 Home, Self Care Clinical Impression: Osteoarthritis of knee Qualifiers: Osteoarthritis type: unspecified Laterality: right Qualified Code(s): M17.11 - Unilateral primary osteoarthritis, right knee Condition: Good Instructions: ED Degenerative Joint Disease Follow-Up: Chino Palomares DO [Primary Care Provider] - Within 1 week Prescriptions: Diclofenac Sodium [Voltaren] 4 gm TP Q6H PRN #1 gel..gram. PRN Reason: knee pain Comments: Return if you worsen. Use the voltaren gel and this should improve over the next few days. Use the cane as needed for support.
--- NOTE | 2018-01-08 16:56 | XRAY Report ---
Reason: R knee pain Procedure Date: 01/08/2018 Accession Number: [id number] / [id number] Procedure: XR - Knee 4 View RT CPT Code: FULL RESULT: EXAM: RIGHT KNEE RADIOGRAPHY EXAM DATE: 01/08/2018 04:30 PM. CLINICAL HISTORY: R knee pain. COMPARISON: None. TECHNIQUE: 4 views. FINDINGS: Bones: There is mild spurring of the medial femoral condyle and medial tibial plateau. Joints: There is mild medial compartment joint space narrowing. There is medial and lateral compartment chondrocalcinosis. No joint effusion. Soft Tissues: There are mild to moderate vascular calcifications. IMPRESSION: Chronic degenerative disease medial compartment of the left knee. Chondrocalcinosis. No fracture or joint effusion. RADIA
== END 2018-01-08 16:59 | disposition home or self-care (01) ==
LOC: ED 15:43
DX: M17.11 Unilateral primary osteoarthritis, right knee (principal); I10 Essential (primary) hypertension
CPT/HCPCS: 73564; 99283; A9270

== ENCOUNTER 2018-01-16 11:48 | Outpatient (CLI) | payer MEDICARE, OTHER ==
--- NOTE | 2018-01-17 08:20 | CARDIAC PROCEDURE NOTE ---
DATE OF SERVICE: 01/16/2018 Physician: Lexie Brown MD, [facility] INDICATIONS FOR TEST 1. Fatigue. 2. PVCs. CARDIAC RISK FACTORS 1. Hypertension. 2. Advanced age. 3. Postmenopausal status. After signing informed consent, the patient performed exercise on a modified Fco protocol. She exercised for 7 minutes and 56 seconds. She achieved a peak heart rate of 117 (86% predicted maximum heart rate for age), 4.6 METS. The patient had moderate shortness of breath at the final stage. She had no chest pain throughout the test. She did report her typical "tiredness,"near peak and this was just as her rhythm went into ventricular bigeminy, which lasted for approx. 10 seconds. Resting EKG: Normal sinus rhythm, frequent PVCs, QS waves in V1 and V2 with J- point elevation in the same leads (consider old anteroseptal NM with aneurysm). The PVCs came and went during exercise. The most frequent was ventricular bigeminy for approx. 10 sec, when she had her symptoms of "tiredness", and there was 1 ventricular couplet. Peak EKG: No new ST or T wave changes. IMPRESSION 1. Fair to poor exercise tolerance. 2. 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 3. No ischemic changes by EKG criteria at a good level of stress. 4. Nuclear images reported separately. cc: MD Chino Membreno DO TD: 01/16/2018 16:21 MTDD
--- NOTE | 2018-01-17 09:05 | Nuclear Medicine Report ---
Reason: DEC EXERCISE TOLERANCE, PVC'S Procedure Date: 01/16/2018 Accession Number: [id number] / [id number] Procedure: NM - Myocardial Perfusion STR/RST CPT Code: FULL RESULT: EXAM: SINGLE-ISOTOPE EXERCISE STRESS TEST. SINGLE-ISOTOPE AND ONE-DAY REST/STRESS MYOCARDIAL PERFUSION SCANS WITH TOMOGRAPHIC IMAGING, QUANTITATIVE ANALYSIS, WALL MOTION ANALYSIS AND CALCULATION OF EJECTION FRACTION. EXAM DATE: 01/16/2018 12:49 PM. CLINICAL HISTORY: Decreased EXERCISE TOLERANCE, PVCS. COMPARISON: None. TECHNIQUE: A rest myocardial perfusion scan was done with tomography after the intravenous administration of 8.2 mCi Tc-99m sestamibi. After an appropriate delay, a treadmill exercise stress was performed according to department protocol. The patient exercised for 7 minutes and 56 seconds. The maximum heart rate was 117 bpm, which was 86% of the maximum predicted heart rate of 136 bpm. At approximately peak heart rate, 40.1 mCi of Tc-99m sestamibi was injected for stress myocardial perfusion scan. Motion correction was applied when appropriate. Gated tomographic images were obtained for wall motion analysis and computation of left ventricular ejection fraction. FINDINGS: Perfusion images: Left ventricular chamber size is normal at rest and unchanged at stress. No convincing fixed perfusion deficits. No convincing reversible perfusion deficits. Gated images: No convincing focal wall motion abnormality. Calculated left ventricular EDV 36 mL, ESV 5 mL. The left ventricular ejection fraction is estimated at 85% (normal > 50%). IMPRESSION: 1. No convincing reversible perfusion deficits to indicate stress-induced ischemia. 2. No convincing fixed perfusion deficits. 3. Left ventricular ejection fraction of 85% (normal > 50%). RADIA
== END 2018-01-16 11:49 | disposition home or self-care (01) ==
LOC: DI 11:48
PROVIDERS: ATTEND Internal Medicine Cardiovascular Disease
DX: R68.89 Other general symptoms and signs (principal); I49.3 Ventricular premature depolarization; R53.83 Other fatigue; I10 Essential (primary) hypertension; Z78.0 Asymptomatic menopausal state; R94.31 Abnormal electrocardiogram [ECG] [EKG]
CPT/HCPCS: 78452; 93017; A9500

== ENCOUNTER 2018-04-22 17:04 | Emergency (ER) | payer MEDICARE, OTHER ==
[2018-04-22] MEDS ORDERED: guaiFENesin/CODEINE 5 ML UDC PO STA (17:26)
--- NOTE | 2018-04-22 17:27 | ED Physician Documentation ---
PD HPI URI - Stated complaint Stated Complaint: COUGH,STOMACH PX - Chief complaint Chief Complaint: Resp - History obtained from History obtained from: Patient, Family () - History of Present Illness Timing - onset: Other (Much of the history is from the due to some poor memory of the patient herself. She is been sick for 3 weeks with a nonproductive cough is much worse at night. There is some shortness of breath at times with it but no fevers.) Review of Systems Constitutional: denies: Fever, Chills Cardiac: denies: Chest pain / pressure, Palpitations Respiratory: denies: Dyspnea, Cough GI: denies: Abdominal Pain PD PAST MEDICAL HISTORY - Past Medical History Cardiovascular: Hypertension, High cholesterol, Murmur Respiratory: None Neuro: Dementia Endocrine/Autoimmune: HyPERthyroidism GI: Chronic constipation, Other : None HEENT: None Psych: Anxiety Musculoskeletal: None Derm: None - Past Surgical History Past Surgical History: Yes Ortho: Hip replacement, Spine surgery, 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 HEENT: Cataracts - Present Medications Home Medications: Ambulatory Orders Medication Instructions Recorded Confirmed Amlodipine/Atorvastatin 1 each PO DAILY 04/29/15 11/04/16 [Amlodipine-Atorvast 5-10 mg] Aspirin [Aspirin EC] 325 mg PO DAILY 04/29/15 11/04/16 Calcium Carbonate [Calcium] 600 mg PO DAILY 04/29/15 11/04/16 Garlic 1 each PO DAILY 04/29/15 11/04/16 Latanoprost 0.005% Ophth Drops 1 drops OPTH QPM 04/29/15 11/04/16 [Xalatan Ophth Drops] Levothyroxine Sodium 100 mcg PO DAILY 04/29/15 11/04/16 Lisinopril 10 mg PO DAILY 04/29/15 11/04/16 [place]-3 Fatty Acids [Fish Oil] 900 mg PO DAILY 04/29/15 11/04/16 Omeprazole [PriLOSEC] 20 mg PO DAILY 04/29/15 11/04/16 Potassium Chloride [K-Dur] 20 meq PO ONCE 04/29/15 11/04/16 Simvastatin 10 mg PO DAILY 04/29/15 11/04/16 Timolol 0.25% Ophth Drops 1 drops EACHEYE DAILY 04/29/15 11/04/16 [Timoptic 0.25% Ophth Drops] Vit C/Ascorbate Ca/Ascorb Sod 500 mg PO BID 04/29/15 11/04/16 [Vitamin C 500 mg/15 ml Liquid] Citalopram Hydrobromide 20 mg PO DAILY 08/27/15 11/04/16 [Citalopram HBr] Zolpidem [Ambien] 1 tab PO DAILY 10/14/17 10/14/17 Doxycycline Hyclate 100 mg PO BID #20 capsule 04/22/18 Sertraline [Zoloft] 25 mg PO DAILY 04/22/18 04/22/18 guaiFENesin/CODEINE [Robitussin AC] 5 - 10 ml PO Q6H PRN #120 ml 04/22/18 - Allergies Allergies/Adverse Reactions: Allergies Allergy/AdvReac Type Severity Reaction Status Date / Time No Known Drug Allergies Allergy Verified 04/22/18 17:13 - Social History Does the pt smoke?: No Smoking Status: Never smoker Does the pt drink ETOH?: Yes Does the pt have substance abuse?: No - Immunizations Immunizations are current?: No Immunizations: TDAP >10years/unknown - POLST Patient has POLST: No PD ED PE NORMAL - Vitals Vital signs reviewed: Yes - General General: No acute distress, Well developed/nourished - HEENT HEENT: Ears normal (Cerumen bilaterally) - Neck Neck: Supple, no meningeal sign, No bony TTP - Cardiac Cardiac: RRR, No murmur - Respiratory Respiratory: No respiratory distress, Clear bilaterally - Abdomen Abdomen: Non tender - Psych Psych: Normal mood, Normal affect Results - Vitals Vitals: Vital Signs - 24 hr 04/22/18 17:09 Temperature 36.6 C Heart Rate 56 L Respiratory 18 Rate Blood Pressure 135/63 H O2 Saturation 97 Oxygen O2 Source Room air PD MEDICAL DECISION MAKING - ED course ED course: 82-year-old woman with symptoms of bronchitis. Chest x-ray grossly clear. Given the time course she does fit criteria for trial of antibiotic treatment especially given the advanced age. Departure - Departure Disposition: 01 Home, Self Care Clinical Impression: Bronchitis Condition: Good Record reviewed to determine appropriate education?: Yes Instructions: ED Bronchitis Asthmatic Prescriptions: Doxycycline Hyclate 100 mg PO BID #20 capsule guaiFENesin/CODEINE [Robitussin AC] 5 - 10 ml PO Q6H PRN #120 ml PRN Reason: Cough Comments: Call your doctor to arrange a follow-up appointment, make the next available appointment. In the interim, return anytime if worse or if new symptoms develop. Your blood pressure was elevated today on check into the emergency department. This does not mean that you have hypertension, it is a common phenomenon to come to the emergency department and have elevated blood pressure. I recommend that you see your primary care physician within the week to have it rechecked when you are feeling better.
[2018-04-22] MEDS ORDERED: DOXYCYCLINE 100 MG TABLET PO STA (17:38)
[2018-04-22 17:58] VITALS: BP 143/87
--- NOTE | 2018-04-22 18:04 | XRAY Report ---
Reason: cough Procedure Date: 04/22/2018 Accession Number: [id number] / [id number] Procedure: XR - Chest 2 View X-Ray CPT Code: 32180 FULL RESULT: EXAM: CHEST RADIOGRAPHY EXAM DATE: 04/22/2018 05:37 PM. CLINICAL HISTORY: Cough. COMPARISON: RIBS W/PA CHEST RT 11/04/2016 4:18 PM. TECHNIQUE: 2 views. FINDINGS: Lungs/Pleura: No focal opacities evident. No pleural effusion. No pneumothorax. Normal volumes. Mediastinum: There is borderline cardiomegaly. There is thoracic aortic calcification and tortuosity. Other: None. IMPRESSION: No acute intrathoracic plain film abnormality. RADIA
== END 2018-04-22 17:58 | disposition home or self-care (01) ==
LOC: ED 17:04
DX: J40 Bronchitis, not specified as acute or chronic (principal); I10 Essential (primary) hypertension; E78.00 Pure hypercholesterolemia, unspecified; E05.90 Thyrotoxicosis, unspecified without thyrotoxic crisis or storm; Z96.649 Presence of unspecified artificial hip joint
CPT/HCPCS: 71046; 99283; A9270

== ENCOUNTER 2018-05-10 14:25 | Outpatient (CLI) | payer MEDICARE, OTHER ==
--- NOTE | 2018-05-11 00:01 | XRAY Report ---
Reason: SHOULDER PAIN,RIGHT Procedure Date: 05/10/2018 Accession Number: [id number] / [id number] Procedure: XR - Shoulder 3 View RT CPT Code: FULL RESULT: EXAM: RIGHT SHOULDER RADIOGRAPHY EXAM DATE: 05/10/2018 04:29 PM. CLINICAL HISTORY: SHOULDER PAIN,RIGHT. COMPARISON: None. TECHNIQUE: 3 views. FINDINGS: Bones: Normal. No fracture or bone lesion. Joints: The glenohumeral and acromioclavicular joints are normal. Soft tissues: The visualized hemithorax is unremarkable. No soft tissue swelling. IMPRESSION: Normal shoulder radiography. RADIA
== END 2018-05-10 14:26 | disposition home or self-care (01) ==
LOC: DI 14:25
PROVIDERS: ATTEND Family Medicine
DX: M25.511 Pain in right shoulder (principal)

== ENCOUNTER 2018-10-25 08:00 | Outpatient (CLI) | payer MEDICARE, OTHER ==
[2018-10-25 19:33] LABS: BASOPHILS # (AUTO) 0.1 10^3/uL (0.0-0.1); BASOPHILS % (AUTO) 1.2 %; EOSINOPHILS # (AUTO) 0.3 10^3/uL (0.0-0.7); EOSINOPHILS % (AUTO) 5.6 %; HGB - HEMOGLOBIN 12.1 g/dL (12.0-16.0); LYMPHOCYTES # (AUTO) 1.1 10^3/uL (1.5-3.5); MEAN CORPUSCULAR HEMOGLOBIN 31.9 pg (27.0-31.0); MEAN CORPUSCULAR HGB CONC 32.2 g/dL (32.0-36.0); MEAN CORPUSCULAR VOLUME 99.2 fL (81.0-99.0); MEAN PLATELET VOLUME 9.6 fL (7.9-10.8); MONOCYTES # (AUTO) 0.6 10^3/uL (0.0-1.0); MONOCYTES % (AUTO) 10.6 %; NEUTROPHILS # (AUTO) 3.2 10^3/uL (1.5-6.6); NEUTROPHILS % (AUTO) 61.2 %; PLT - PLATELET COUNT 341 10^3/uL (130-450); RED BLOOD COUNT 3.79 10^6/uL (4.20-5.40); RED CELL DISTRIBUTION WIDTH 13.4 % (12.0-15.0); WHITE BLOOD COUNT 5.2 x10^3/uL (4.8-10.8)
[2018-10-25 19:55] LABS: ALBUMIN/GLOBULIN RATIO 1.3 (1.0-2.2); BILIRUBIN,TOTAL 0.5 mg/dL (0.2-1.0); CALCIUM 9.3 mg/dL (8.5-10.3); CREATININE 0.8 mg/dL (0.4-1.0)
== END 2018-10-25 08:01 | disposition home or self-care (01) ==
LOC: LAB.WCP 08:00
PROVIDERS: ATTEND Family Medicine
DX: K52.9 Noninfective gastroenteritis and colitis, unspecified (principal)
CPT/HCPCS: 36415; 80053; 82150; 83690; 85025

== ENCOUNTER 2018-12-11 15:28 | Emergency (ER) | payer MEDICARE, OTHER ==
[2018-12-11 15:40] VITALS: BP 126/55
== END 2018-12-11 17:10 | disposition left against medical advice (07) ==
LOC: ED 15:28
DX: Z53.21 Procedure and treatment not carried out due to patient leaving prior to being seen by health care provider (principal)

== ENCOUNTER 2019-06-11 16:01 | Outpatient (CLI) | payer MEDICARE, OTHER ==
--- NOTE | 2019-06-12 04:53 | XRAY Report ---
Reason: LEFT HIP PAIN Procedure Date: 06/11/2019 Accession Number: [id number] / [id number] Procedure: WCP - Hip 1 View LT CPT Code: Final Report FULL RESULT: EXAM: LEFT HIP RADIOGRAPHY EXAM DATE: 06/11/2019 04:01 PM. CLINICAL HISTORY: LEFT HIP PAIN. COMPARISON: ABDOMEN/PELVIS W/ 06/03/2017 6:50 PM. TECHNIQUE: 2 views. 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 The acetabular components and femoral stems are well seated. No periprosthetic lucencies are seen to suggest loosening or fracture. A large right periacetabular ossification is again seen. Multiple phleboliths are seen in the pelvis. There is no evidence of acute fracture. No focal soft tissue swelling is seen. 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 RADIA
== END 2019-06-11 23:59 | disposition home or self-care (01) ==
LOC: DI.WCP 16:01
PROVIDERS: ATTEND Family Medicine
DX: M25.552 Pain in left hip (principal); Z96.643 Presence of artificial hip joint, bilateral

== ENCOUNTER 2019-07-06 10:50 | Outpatient (CLI) | payer MEDICARE, OTHER | END 2019-07-06 23:59 | disposition home or self-care (01) | LOC: LAB.R 10:50 | PROVIDERS: ATTEND Family Medicine | DX: N39.0 Urinary tract infection, site not specified (principal) | CPT/HCPCS: 87077; 87086; 87181 ==

== ENCOUNTER 2019-08-21 11:00 | Outpatient (CLI) | payer MEDICARE, OTHER ==
--- NOTE | 2019-08-21 17:35 | XRAY Report ---
Reason: CONTUSION OF THORAX Procedure Date: 08/21/2019 Accession Number: [id number] / [id number] Procedure: WCP - Thoracic Spine 2 View CPT Code: Final Report FULL RESULT: EXAM: THORACIC SPINE RADIOGRAPHY EXAM DATE: 08/21/2019 11:00 AM. CLINICAL HISTORY: CONTUSION OF THORAX. Fall one week ago onto the left side. Pain. COMPARISON: RIBS 2 VIEW LT 08/21/2019 10:12 AM. TECHNIQUE: 2 views. FINDINGS: Alignment: Mild right convex scoliosis of the thoracolumbar junction. No subluxation. Bones: Minimally displaced acute lateral left ninth rib fracture. A marker was placed over the lower lateral left ribs. No fracture is identified in the thoracic spine. No lucent or sclerotic lesions. Disks: Minimal anterior endplate osteophyte formation at several mid thoracic levels. Disk heights are maintained in the lumbar spine. There is moderate multilevel lumbar degenerative disk disease. Soft Tissues: Mild aortic arch calcification. The visualized lungs and cardiomediastinal silhouette are normal. IMPRESSION: 1. Minimally displaced acute lateral left ninth rib fracture. 2. No fracture or subluxation in the thoracic spine. RADIA
--- NOTE | 2019-08-21 17:38 | XRAY Report ---
Reason: LOW BACK PAIN Procedure Date: 08/21/2019 Accession Number: [id number] / [id number] Procedure: WCP - Lumbar Spine 2 View CPT Code: Final Report FULL RESULT: EXAM: LUMBOSACRAL SPINE RADIOGRAPHY EXAM DATE: 08/21/2019 11:00 AM. CLINICAL HISTORY: LOW BACK PAIN. Fall onto the left side one week ago. COMPARISONS: THORACIC SPINE 2 VIEW 08/21/2019 10:24 AM RIBS 2 VIEW LT 08/21/2019 10:12 AM. TECHNIQUE: 2 views. FINDINGS: Alignment: Mild right convex curvature at the thoracolumbar junction. No subluxation. Bones: Five [id number] lumbar vertebral bodies are present. No fractures or bone lesions in the lumbar spine. A marker was placed over the lateral lower left ribs. There are mildly displaced fractures of the lateral left seventh, eighth, ninth ribs. Bilateral total hip arthroplasty. Disks: Moderate disk height loss and endplate osteophyte formation throughout the lumbar spine. Facets: Mild bilateral L3-L4, L4-L5, L5-S1 facet sclerosis indicating osteoarthritis. Sacroiliac Joints: Unremarkable. Soft Tissues: Moderate formed stool in the colon. Moderate aortoiliac atherosclerotic calcification. IMPRESSION: 1. Mildly displaced acute fractures of the lateral left seventh, eighth, and ninth ribs. 2. No fracture or subluxation in the lumbar spine. 3. Moderate multilevel lumbar degenerative disk disease. 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 RADIA
--- NOTE | 2019-08-21 17:41 | XRAY Report ---
Reason: LEFT RIB PAIN Procedure Date: 08/21/2019 Accession Number: [id number] / [id number] Procedure: WCP - Ribs 2 View LT CPT Code: Final Report FULL RESULT: EXAM: LEFT RIB RADIOGRAPHY EXAM DATE: 08/21/2019 11:00 AM. CLINICAL HISTORY: LEFT RIB PAIN. Fall onto the left side one week ago. COMPARISON: CHEST 2 VIEW 04/22/2018 5:32 PM THORACIC SPINE 2 VIEW 08/21/2019 10:24 AM LUMBAR SPINE 2 VIEW 08/21/2019 10:33 AM. TECHNIQUE: 2 views. FINDINGS: Bones: Mildly displaced acute fractures of the lateral left seventh, eighth, and ninth ribs. There is a nearby marker. Lungs: On the available oblique views, there is no gross pneumothorax or pleural fluid. No focal airspace opacities. Mediastinum: Heart and cardiomediastinal contours are unremarkable. Mild aortic arch calcification. Other: None. IMPRESSION: Acute mildly displaced fractures of the lateral left seventh, eighth, and ninth ribs. RADIA
== END 2019-08-21 23:59 | disposition home or self-care (01) ==
LOC: DI.WCP 11:00
PROVIDERS: ATTEND Family Medicine
DX: S22.42XA Multiple fractures of ribs, left side, initial encounter for closed fracture (principal); M47.816 Spondylosis without myelopathy or radiculopathy, lumbar region; M47.817 Spondylosis without myelopathy or radiculopathy, lumbosacral region; M51.36 Other intervertebral disc degeneration, lumbar region; Z96.643 Presence of artificial hip joint, bilateral
CPT/HCPCS: 72070; 72100

== ENCOUNTER 2019-10-03 14:32 | Outpatient (CLI) | payer MEDICARE, OTHER ==
--- NOTE | 2019-10-03 15:24 | DEXA Report ---
Reason: POSTMENOPAUSAL STATUS Procedure Date: 10/03/2019 Accession Number: [id number] / [id number] Procedure: DEX - Dexa Spine and/or Hip CPT Code: Final Report FULL RESULT: PROCEDURE: Dexa Spine and/or Hip INDICATIONS: POSTMENOPAUSAL STATUS TECHNIQUE: Dual energy x-ray absorptiometry (DXA) was performed on a [employer] System. Regions measured are the AP Spine, femoral neck, and if needed forearm. COMPARISON: None. FINDINGS: Lumbar Spine: Excluded due to anatomy. Left radius: Bone Mineral Density 0.563 g/cm/cm, T score -1.8, (T score greater or equal to -1.0: NORMAL) (T score from -1.1 to -2.4: OSTEOPENIA) (T score less than or equal to -2.5 to: OSTEOPOROSIS) Impression: Osteopenia Patients with diagnosis of osteoporosis or osteopenia should have regular bone mineral density assessment. For those eligible for Medicare, routine testing is allowed once every 2 years. Testing frequency can be increased for patients who have rapidly progressing disease or for those who are receiving medical therapy to restore bone mass. Reviewed by: Steven Jensen MD on 10/03/2019 3:23 PM PDT Approved by: Steven Jensen MD on 10/03/2019 3:23 PM PDT Station ID: [id number]
--- NOTE | 2019-10-04 12:27 | DEXA Report ---
Reason: POSTMENOPAUSAL STATUS Procedure Date: 10/03/2019 Accession Number: [id number] / [id number] Procedure: DEX - Dexa Forearm CPT Code: Final Report FULL RESULT: PROCEDURE: Dexa Forearm INDICATIONS: POSTMENOPAUSAL STATUS TECHNIQUE: Dual energy x-ray absorptiometry (DXA) was performed on a [employer] System. Regions measured are the AP Spine, femoral neck, and if needed forearm. COMPARISON: DEXA 08/05/2011. CT abdomen and pelvis 06/03/2017. FINDINGS: Lumbar Spine: Bone Mineral Density 1.840 g/cm/cm, T score 5.5. (Previously 3.9). This is likely artificially elevated due to degenerative change. Left forearm: Bone Mineral Density 0.527 g/cm/cm, T score -1.8. Patient has bilateral hip arthroplasties. (T score greater or equal to -1.0: NORMAL) (T score from -1.1 to -2.4: OSTEOPENIA) (T score less than or equal to -2.5 to: OSTEOPOROSIS) Impression: Left forearm osteopenia. Patients with diagnosis of osteoporosis or osteopenia should have regular bone mineral density assessment. For those eligible for Medicare, routine testing is allowed once every 2 years. Testing frequency can be increased for patients who have rapidly progressing disease or for those who are receiving medical therapy to restore bone mass. Reviewed by: Lucas Narvaez MD on 10/04/2019 12:26 PM PDT Approved by: Lucas Narvaez MD on 10/04/2019 12:26 PM PDT Station ID: [id number]
== END 2019-10-03 14:33 | disposition home or self-care (01) ==
LOC: DI 14:32
PROVIDERS: ATTEND Family Medicine
DX: M85.832 Other specified disorders of bone density and structure, left forearm (principal)
CPT/HCPCS: 77080; 77081

== ENCOUNTER 2019-10-25 19:04 | Outpatient (CLI) | payer MEDICARE, OTHER ==
--- NOTE | 2019-10-26 09:45 | XRAY Report ---
PROCEDURE: Tib/Fib LT INDICATIONS: Leg pain, Left TECHNIQUE: 2 views of the tibia and fibula were acquired. COMPARISON: None FINDINGS: Bones: No fractures or dislocations. No suspicious bony lesions. Soft tissues: No suspicious soft tissue calcifications or masses. IMPRESSION: No visualized acute fracture or dislocation. However, occult injury cannot be excluded. Recommend stephanie rt interval imaging follow-up in 7-10 days as clinically indicated for additional evaluation. Reviewed by: Mitra Byrd MD on 10/26/2019 9:44 AM PDT Approved by: Mitra Byrd MD on 10/26/2019 9:44 AM PDT Station ID: [id number]
== END 2019-10-25 19:05 | disposition home or self-care (01) ==
LOC: DI 19:04
PROVIDERS: ATTEND Family Medicine
DX: M79.605 Pain in left leg (principal)

== ENCOUNTER 2020-01-22 16:46 | Outpatient (CLI) | payer MEDICARE, OTHER ==
[2020-01-22 19:12] LABS: BASOPHILS # (AUTO) 0.1 10^3/uL (0.0-0.1); BASOPHILS % (AUTO) 1.1 %; EOSINOPHILS # (AUTO) 0.3 10^3/uL (0.0-0.7); EOSINOPHILS % (AUTO) 4.5 %; HGB - HEMOGLOBIN 11.6 g/dL (12.0-16.0); LYMPHOCYTES # (AUTO) 1.2 10^3/uL (1.5-3.5); LYMPHOCYTES % (AUTO) 20.6 %; MEAN CORPUSCULAR HEMOGLOBIN 30.6 pg (27.0-31.0); MEAN CORPUSCULAR HGB CONC 31.3 g/dL (32.0-36.0); MEAN CORPUSCULAR VOLUME 97.9 fL (81.0-99.0); MEAN PLATELET VOLUME 9.2 fL (7.9-10.8); MONOCYTES # (AUTO) 0.5 10^3/uL (0.0-1.0); NEUTROPHILS # (AUTO) 3.6 10^3/uL (1.5-6.6); NEUTROPHILS % (AUTO) 64.6 %; PLT - PLATELET COUNT 390 10^3/uL (130-450); RED BLOOD COUNT 3.79 10^6/uL (4.20-5.40); RED CELL DISTRIBUTION WIDTH 13.5 % (12.0-15.0); WHITE BLOOD COUNT 5.6 x10^3/uL (4.8-10.8)
[2020-01-22 19:16] LABS: ALBUMIN 4.3 g/dL (3.2-5.5); ALBUMIN/GLOBULIN RATIO 1.5 (1.0-2.2); ALKALINE PHOSPHATASE 58 IU/L (42-121); ALT ALANINE AMINOTRANSFERASE 13 IU/L (10-60); AST ASPARTATE AMINOTRANSFERASE 22 IU/L (10-42); BILIRUBIN,TOTAL 0.7 mg/dL (0.2-1.0); BUN - BLOOD UREA NITROGEN 23 mg/dL (6-20); CALCIUM 9.3 mg/dL (8.5-10.3); CARBON DIOXIDE - CO2 26 mmol/L (21-32); CHLORIDE 102 mmol/L (101-111); CHOLESTEROL 196 mg/dL; CREATININE 0.8 mg/dL (0.4-1.0); GLUCOSE 97 mg/dL (70-100); HDL CHOLESTEROL 66 mg/dL; LDL CHOLESTEROL,CALCULATED 90 mg/dL; LDL/HDL RATIO 1.4 (<4.4); SODIUM 137 mmol/L (135-145); TOTAL PROTEIN 7.1 g/dL (6.7-8.2); VLDL CHOLESTEROL 40 mg/dL
== END 2020-01-22 23:59 | disposition home or self-care (01) ==
LOC: LAB.WCP 16:46
PROVIDERS: ATTEND Family Medicine
DX: I10 Essential (primary) hypertension (principal); E78.5 Hyperlipidemia, unspecified; E03.9 Hypothyroidism, unspecified
CPT/HCPCS: 36415; 80053; 80061; 83721; 84443; 85025

== ENCOUNTER 2020-07-21 08:00 | Outpatient (CLI) | payer MEDICARE, OTHER ==
[2020-07-21 18:35] LABS: BASOPHILS # (AUTO) 0.1 10^3/uL (0.0-0.1); BASOPHILS % (AUTO) 1.6 %; EOSINOPHILS # (AUTO) 0.4 10^3/uL (0.0-0.7); EOSINOPHILS % (AUTO) 5.7 %; HCT - HEMATOCRIT 37.9 % (37.0-47.0); HGB - HEMOGLOBIN 12.1 g/dL (12.0-16.0); LYMPHOCYTES # (AUTO) 1.2 10^3/uL (1.5-3.5); LYMPHOCYTES % (AUTO) 19.2 %; MEAN CORPUSCULAR HEMOGLOBIN 31.8 pg (27.0-31.0); MEAN CORPUSCULAR HGB CONC 31.9 g/dL (32.0-36.0); MEAN CORPUSCULAR VOLUME 99.7 fL (81.0-99.0); MEAN PLATELET VOLUME 9.2 fL (7.9-10.8); MONOCYTES # (AUTO) 0.7 10^3/uL (0.0-1.0); MONOCYTES % (AUTO) 11.2 %; NEUTROPHILS # (AUTO) 3.8 10^3/uL (1.5-6.6); PLT - PLATELET COUNT 383 10^3/uL (130-450); RED CELL DISTRIBUTION WIDTH 13.2 % (12.0-15.0); WHITE BLOOD COUNT 6.1 x10^3/uL (4.8-10.8)
[2020-07-21 19:23] LABS: THYROID STIMULATING HORMONE 3.13 uIU/mL (0.34-5.60)
[2020-07-21 19:29] LABS: ALBUMIN 4.4 g/dL (3.2-5.5); ALBUMIN/GLOBULIN RATIO 1.5 (1.0-2.2); ALKALINE PHOSPHATASE 76 IU/L (42-121); ALT ALANINE AMINOTRANSFERASE 15 IU/L (10-60); AST ASPARTATE AMINOTRANSFERASE 20 IU/L (10-42); BILIRUBIN,TOTAL 0.8 mg/dL (0.2-1.0); BUN - BLOOD UREA NITROGEN 21 mg/dL (6-20); CALCIUM 9.5 mg/dL (8.5-10.3); CARBON DIOXIDE - CO2 26 mmol/L (21-32); CHLORIDE 102 mmol/L (101-111); CHOL/HDL RATIO 3.2 (<4.4); CHOLESTEROL 226 mg/dL; CREATININE 0.8 mg/dL (0.4-1.0); GFR - MDRD 68 (>89); GLUCOSE 87 mg/dL (70-100); HDL CHOLESTEROL 70 mg/dL; LDL CHOLESTEROL,CALCULATED 112 mg/dL; LDL/HDL RATIO 1.6 (<4.4); POTASSIUM 4.3 mmol/L (3.5-5.0); SODIUM 137 mmol/L (135-145); TOTAL PROTEIN 7.3 g/dL (6.7-8.2); TRIGLYCERIDES 222 mg/dL; VLDL CHOLESTEROL 44 mg/dL
== END 2020-07-21 23:59 | disposition home or self-care (01) ==
LOC: LAB.WCP 08:00
PROVIDERS: ATTEND Family Medicine
DX: I10 Essential (primary) hypertension (principal); E78.5 Hyperlipidemia, unspecified; E03.9 Hypothyroidism, unspecified
CPT/HCPCS: 36415; 80053; 80061; 83721; 84443; 85025

== ENCOUNTER 2020-12-16 08:00 | Outpatient (CLI) | payer MEDICARE, OTHER | END 2020-12-16 23:59 | disposition home or self-care (01) | LOC: LAB.N 08:00 | PROVIDERS: ATTEND Nurse Practitioner | DX: U07.1 COVID-19 (principal) ==

== ENCOUNTER 2020-12-16 19:02 | Outpatient (CLI) | payer MEDICARE, OTHER ==
--- NOTE | 2020-12-17 10:47 | XRAY Report ---
PROCEDURE: Chest 2 View X-Ray INDICATIONS: Dry cough TECHNIQUE: 2 view(s) of the chest. COMPARISON: 04/22/2018 FINDINGS: Surgical changes and devices: None. Lungs and pleura: No pleural effusions or pneumothorax. There is new left retrocardiac airspace opac ity best seen on the lateral view overlying the spine in the posterior costophrenic sulcus. Mediastinum: Mediastinal contours are normal. Heart size is normal. Bones and chest wall: No suspicious bony abnormalities. Soft tissues appear unremarkable. IMPRESSION: Left basilar airspace disease, likely infectious. Follow-up to resolution recommended to help exclude an underlying neoplasm. Reviewed by: Delvis Ochoa MD on 12/17/2020 10:45 AM PDT Approved by: Delvis Ochoa MD on 12/17/2020 10:45 AM PDT Station ID: [id number]
== END 2020-12-16 23:59 | disposition home or self-care (01) ==
LOC: DI.N 19:02
PROVIDERS: ATTEND Nurse Practitioner
DX: R05 Cough (principal); R91.8 Other nonspecific abnormal finding of lung field; U07.1 COVID-19
CPT/HCPCS: 71046; U0004

== ENCOUNTER 2021-01-05 16:48 | Outpatient (CLI) | payer MEDICARE, OTHER | END 2021-01-05 16:49 | disposition home or self-care (01) | LOC: COV 16:48 | PROVIDERS: ATTEND Family Medicine | DX: R05 Cough (principal); M79.10 Myalgia, unspecified site; R53.83 Other fatigue; R19.7 Diarrhea, unspecified; Z20.822 Contact with and (suspected) exposure to COVID-19 ==